=== PATIENT | male | born 1945 | race African-American/Black ===

== ENCOUNTER 2017-06-10 07:36 | Day surgery (SDC) | payer OTHER ==
[~2017-06-10] VITALS: Ht 177.8 cm; Wt 110.0 kg
[~2017-06-10 07:36] MED LIST: AZIT250T3 PO; BENZ100 PO
[2017-06-10] MEDS ORDERED: IOHEXOL 350 MG/ML 100 ML BTL (for Cath Lab) IVCONTRAST ONE (07:37)
[2017-06-10 07:45] VITALS: BP 162/77; PULSE 60; RESP 18; O2SAT 97
[2017-06-10 09:00] LABS: AUTOMATED NEUTROPHIL # 2.8 TH/MM3 (1.8-7.7); BASOPHIL # 0.1 TH/MM3 (0-0.2); BASOPHIL % 1.1 % (0.0-2.0); EOSINOPHIL # 0.2 TH/MM3 (0-0.4); EOSINOPHIL % 3.8 % (0.0-4.0); HEMO FLAGS DIFF FINAL; LYMPH % 42.1 % (9.0-44.0); LYMPHOCYTE # 2.7 TH/MM3 (1.0-4.8); MEAN CELL VOLUME 88.3 FL (80.0-100.0); MEAN CORPUSCULAR HEMOGLOBIN 28.3 PG (27.0-34.0); MEAN CORPUSCULAR HGB CONC 32.1 % (32.0-36.0); PLATELET COUNT 144 TH/MM3 (150-450); RED BLOOD COUNT 4.64 MIL/MM3 (4.50-5.90); RED CELL DISTRIBUTION WIDTH 14.9 % (11.6-17.2); WHITE BLOOD COUNT 6.4 TH/MM3 (4.0-11.0)
[2017-06-10] MEDS: NS 1000P @30 MLS/HR (KVO) IV SCH (09:00)
[2017-06-10 09:10] LABS: APTT (PATIENT) 26.1 SEC (24.3-30.1); PROTHROMBIN TIME - PATIENT 10.5 SEC (9.8-11.6)
[2017-06-10 09:11] LABS: BICARBONATE 24.2 MEQ/L (21.0-32.0); POTASSIUM 4.2 MEQ/L (3.5-5.1)
[2017-06-10] MEDS ORDERED: NOVOINJ2 SQ (09:13)
[2017-06-10] MEDS ORDERED: NITR0.4S SL (09:13)
[2017-06-10] MEDS ORDERED: MULTTAB67 PO (09:13)
[2017-06-10] MEDS ORDERED: FLUC50TA2 PO (09:13)
[2017-06-10] MEDS ORDERED: CLOP75TA PO (09:13)
[2017-06-10] MEDS ORDERED: METO25TA3 PO (09:13)
[2017-06-10] MEDS ORDERED: ATOR20TA15 PO (09:13)
[2017-06-10] MEDS ORDERED: NOVOLOGP2 SQ (09:13)
[2017-06-10] MEDS ORDERED: ASPI81CH CHEW (09:13)
[2017-06-10] MEDS ORDERED: GABA300C5 PO (09:13)
[2017-06-10] MEDS ORDERED: CHOL100025 CHEW (09:13)
[2017-06-10] MEDS ORDERED: OMEP20TA PO (09:13)
[2017-06-10] MEDS ORDERED: LOSA100T2 PO (09:13)
[2017-06-10] MEDS ORDERED: VITA100021 SL (09:13)
[2017-06-10] MEDS ORDERED: HEPARIN SODIUM - IV 10,000 UNITS/10 ML VIAL ONE (10:55)
[2017-06-10] MEDS ORDERED: MIDAZOLAM HCL 2 MG/2 ML VIAL ONE (10:55)
[2017-06-10] MEDS ORDERED: HEPARIN-NS/PF INJ 1,500 ML ONE (10:55)
[2017-06-10] MEDS ORDERED: NITROGLYCERIN INJ 5 ML ONE (10:55)
[2017-06-10] MEDS ORDERED: VERAPAMIL HCL 5 MG/2 ML VIAL ONE (10:55)
[2017-06-10] MEDS ORDERED: ONDANSETRON HCL 4 MG/2 ML VIAL IVP PRN (12:45)
[2017-06-10] MEDS ORDERED: DEXTROSE 50% IN WATER 50 ML VIAL(D50) IV PRN (12:45)
[2017-06-10] MEDS ORDERED: GLUCAGON 1 MG/ML VIAL OTHER PRN (12:45)
[2017-06-10] MEDS ORDERED: MISC INFORMATION XX ONE (12:45)
--- NOTE | 2017-06-10 12:52 | CATHPROC ---
[facility] HIS Report Study Information Study Number Admission Scheduled Start Study Start [id number] Jun 10 2017 7:36AM 06/10/2017 Jun 10 2017 9:38AM [place] [facility] Cardiac Catheterization Admit Source Facility Department Other [facility] - Receiver Bulk System Physician and Clinical Staff Initial Phillip Farley Balance Recesser Mukul FIGUEROA, Pato Recorder Disha Dawkins,RT(R) Recorder Chloé Collier RCIS TECH2 Scrub Augustus Richardson RCIS(BS) Procedures Performed Procedure Location (Site) Vessel Name Coronary Angiograms LCA Left Coronary Coronary Angiograms RCA Right Coronary L Heart Cath PTCA CIRC Prox CIRC Wire insertion Fem Art (right) Femoral Art Wire insertion Radial (right) Radial Art. Equipment Time Track Laborer Description Size Mfg Part Number Used/Scraped WIRE, BALANCE MIDDLEWEIGHT [id number] 11:28 [employer] 190CM Used 190CM *[id number] TRANSDUCER, TRUWAVE [id number] 10:51 GONCALVES JEAN * Used W/STOCKCOCK *[id number] BALLOON, 2.5 6MM FLEXTOME [id number] 12:11 [employer] 2.5 6MM Used CUTTING *[id number] 534-518T *[id number] 534-521T *[id number] 10:51 [employer] INDUSTRIES PACK, CCL CUSTOM * Used *[id number] BALLOON, 2.75 X 12MM NC [id number] 12:13 MEDTRONIC 12MM Used EUPHORA *[id number] 11:26 MEDTRONIC/AVE EBU 3.5 Z2 GUIDE CATHETER FR 6 Used *[id number] 11:48 [employer]TRONIC/AVE EBU 4.0 Z2 GUIDE CATHETER FR 6 Used *[id number] 12:12 [employer] 30 MARCIA INDEFLATOR Used *[id number] BAND, RADIAL COMPRESSION TR [id number] 12:25 [employer] 29CM Used LARGE 29 *[id number] 10:51 [employer] SHEATH, FR5.5 PRELUDE 11CM FR 5 [id number] Used [id number] 10:51 [employer] WIRE, 3MMJ .035 180CM 180CM Used *[id number] 10:51 NAMIC MANIFOLD, 4 PORT * Used *[id number] 10:51 [employer] OMNIPAQUE, 350 MG, 150ML 150ML [id number] Used [id number] 10:51 [employer],WARM AIR CCL * Used *[id number] 110-004 11:32 [employer] CATHETER, ELCA 0.9MM X-80 150CM Used *[id number] Equipment Model, Serial, Lot Number and Expiration Data Description Model Number Serial Number Lot Number Expiration Date BALLOON, 2.75 X 12MM MO [id number] 04-29-2019 EUPHORA CATHETER, ELCA 0.9MM X-80 [id number] 11-22-2018 History: Current Medications Medication Dosage/Unit Route Frequency Last Date/Time Taken ASA PLAVIX Beta Orin Statins (any) LOPRESSOR COZAAR Neurontin NTG SL Insulin Prilosec History: Allergies Allergy Reaction No Known Allergies pravastatin tramadol [place] History: Risk Factors Family History of Hypertension Dyslipidemia Previous [place] Previous Heart Failure Premature CAD Yes Yes No No No Prior Valve Prior PCI Prior PCIDate Prior CABG Surgery No Yes 10/17/2010 No Cerebrovascular Peripheral Artery Chronic Lung On Dialysis Diabetes Diabetes Therapy Disease Disease Disease No No Yes No Yes Insulin History: Symptoms/Diagnosis Selection Items Chest pain SOB History: Stress Tests Stress or Imaging Studies Performed No History: Other Current Smoker Quit Packs a Day Years Used Pack Years No 24 Years Ago 30 30 Labs Hgb (g/dl) Hct (%) RBC (MIL/MM3) WBC (l/cumm) Platelets (thousands) 11.60-17.00 35.00-51.00 4.00-5.90 4.00-11.00 150.00-450.00 13.2 41 4.6 6.4 144 Glucose (mg/dl) BUN (mg/dl) Creatinine (mg/dl) BUN:Creatinine (1:x) 74.00-106.00 7.00-18.00 0.50-1.30 10.00-20.00 135 31 1.4 22.1 Na (meq/l) K (meq/l) 136.00-145.00 3.50-5.10 140 4.2 INR (PTT:PT) 0.90-1.10 1 CPK-MB (ng/ML) 0.50-3.60 Not Drawn Medication Medication Total Dose (Bolus/Oral) Medication Total Dosage/Unit 1% XYLOCAINE 20 mL FENTANYL 50 mcg HEPARIN 8000 units NTG (IC) 400 mcg RADIAL COCKTAIL 5 mL (Bolus) VERSED 0.5 mg Medications (Bolus/Oral) Medication Time Given Dosage/Unit Administered By Reason FENTANYL 06/10/2017 11:10:21 AM 25 mcg Pato Gilman RN 25 mcg FENTANYL given in lab by Pato Gilman RN in Left Hand via Peripheral IV. Ordered by Phillip Musa. 1% XYLOCAINE 06/10/2017 11:10:36 AM 20 mL Phillip Musa 20 mL 1% XYLOCAINE given in lab by Phillip Musa in Right Radial via Subcutaneous. Ordered by Phillip Worley. VERSED 06/10/2017 11:11:11 AM 0.5 mg Pato Gilman RN 0.5 mg VERSED given in lab by Pato Gilman RN in Left Hand via Peripheral IV. Ordered by Ladonna Musa. Ntg 200mcg Verapamil 2.5mg Heparin RADIAL COCKTAIL 06/10/2017 11:11:50 AM 5 mL (Bolus) Phillip Musa 2500U 5 mL (Bolus) RADIAL COCKTAIL given in lab by Phillip Musa in Right Radial via Radial. Using [Thalia ution Name]. Ordered by Phillip Musa. Reason: Ntg 200mcg Verapamil 2.5mg Heparin 4500U. HEPARIN 06/10/2017 11:27:13 AM 8000 units Pato Gilman RN 8000 units HEPARIN given in lab by Pato Gilman RN in Left Hand via Peripheral IV. Ordered by Phillip Fraire. FENTANYL 06/10/2017 12:05:40 PM 25 mcg Pato Gilman RN 25 mcg FENTANYL given in lab by Pato Gilman RN in Left Hand via Peripheral IV. Ordered by Phillip uMsa. NTG (IC) 06/10/2017 12:16:37 PM 200 mcg Phillip Musa 200 mcg NTG (IC) given in lab by Phillip Musa in Right Radial via Intra-coronary. Ordered by Phillip Worley. NTG (IC) 06/10/2017 12:21:03 PM 200 mcg Phillip Musa 200 mcg NTG (IC) given in lab by Phillip Musa in Right Radial via Intra-coronary. Ordered by Phillip Worley. Initial Case Assessment Cardiovascular HR Rhythm NIBP Chest Pain 67 taylor 186/94 0 Edema Present Skin color Skin Mild Normal Warm Circulatory - Right Pulses Dorsalis Pedis Femoral Radial 1 1 3 Scale (0,1,2,3,4,d) Circulatory - Left Pulses Dorsalis Pedis Femoral Radial 1 1 Scale (0,1,2,3,4,d) Neurological State Oriented to time-place- Alert Moves all extremities person Respiration - General Respiration Rate SpO2 (%) (B/min) 19 97 Final Case Assessment Cardiovascular HR Rhythm NIBP Chest Pain 57 taylor 155/87 0 Edema Present Skin color Skin Mild Normal Warm Circulatory - Right Pulses Dorsalis Pedis Femoral Radial 1 1 3 Scale (0,1,2,3,4,d) Circulatory - Left Pulses Dorsalis Pedis Femoral Radial 1 1 Scale (0,1,2,3,4,d) Neurological State Oriented to time-place- Alert Moves all extremities person Respiration - General Respiration Rate SpO2 (%) (B/min) 13 93 Chronological Log Time Study Chronological Log 10:49:07 Patient arrived via Bed. 10:49:08 Patient Name, D.O.B, / Armband Verified By R.N. 10:49:09 Consent signed by the physician and the patient and verified by the Receiver Bulk System staff. 10:49:10 Pre-op and post- op instructions given; patient acknowledges understanding of instructions. 10:49:13 Presedation assessment performed by Receiver Bulk System RN. 10:49:16 Allens test performed on the right radial and ulnar artery. 10:49:22 Patient has been NPO for Less than 6Hrs. 10:49:23 Skin Breakdown- none per pt 10:49:24 Patient Warmer Placed on the Table. 10:49:24 Jonathan Prominences Protected 10:49:28 A # 20 IV was noted in the Hand (left). Grade = 0 10:49:28 History and physical on the chart or being dictated. Assessment: Initial Case, HR=67 BPM, Rhythm=taylor, TGKD=052/94 mmhg, Chest Pain=0, Edema=Mild, Color=Normal, Skin = Warm Right Pulses: Moses Ped=1, Femoral=1, Radial=3 10:49:29 Left Pulses: Moses Ped=1, Femoral=1 Neurological: State=Alert, Ox3, NOVA Respiration: Resp=19 B/min, SpO2=97 % Vitals capture started with the following parameters, Patient=Adult, Interval=5 min, Initial Pr tkpfoz=233 mmHg, 10:54:31 Deflation Rate=5 mmHg, Cuff placed on Right Arm 10:55:58 HR=63 bpm, GJKZ=668/94 mmhg, SpO2=97.0 %, Resp=18 B/min, Pain=0, Abilio=10, Mendez=2 10:56:59 Right radial and Bilateral groins prepped with 2% chlorhexidine, and draped after a 3 min. waiting time. 10:57:55 Reference ECG taken 11:00:21 HR=61 bpm, NXSO=291/88 mmhg, SpO2=97.0 %, Resp=17 B/min, Pain=0, Abilio=10, Mendez=2 11:03:03 Pressure channel 1 zeroed. 11:05:22 HR=63 bpm, ONEA=395/89 mmhg, SpO2=97.0 %, Resp=17 B/min, Pain=0, Abilio=10, Mendez=2 11:06:12 MD arrived. Time Out. Correct patient, correct procedure, correct physician, power injector not loaded with contrast with surgical 11:09:40 team present. Time Out Concurred by MD, individual staff in procedure 11:10:21 HR=64 bpm, XIOI=798/89 mmhg, SpO2=95.0 %, Resp=18 B/min, Pain=0, Abilio=10, Mendez=2 11:10:21 25 mcg FENTANYL given in lab by Pato Gilman RN in Left Hand via Peripheral IV. Ordered by Phillip Musa. 11:10:29 Case Start 20 mL 1% XYLOCAINE given in lab by Phillip Musa in Right Radial via Subcutaneous. Ordered by Lencho 11:10:36 Phillip. 11:11:11 0.5 mg VERSED given in lab by Pato Gilman RN in Left Hand via Peripheral IV. Ordered by Phillip Sin. 11:11:26 Access site was Radial Artery. 11:11:36 A SHEATH, FR5.5 PRELUDE 11CM FR 5 was advanced into the Radial (right) using the Percutaneo us technique. 5 mL (Bolus) RADIAL COCKTAIL given in lab by Phillip Musa in Right Radial via Radial. Usin g [Solution Name]. 11:11:50 Ordered by Phillip Musa. Reason: Ntg 200mcg Verapamil 2.5mg Heparin 4500U. A JR 4.0 INFINITI CATHETER FR 5 was advanced over a wire. OMNIPAQUE, 350 MG, 150ML 150ML was us ed for 11:12:44 injections. Recorded Pressure: LV, HR=66, Condition=Condition 1 11:14:03 (Left Ventricle) LV 167/7/14 Recorded Pressure: LV, Ao, HR=66, Condition=Condition 1 11:14:24 (Left Ventricle) LV 175/7/17, (Aorta) Ao 171/74/112 Recorded Pressure: Ao, HR=67, Condition=Condition 1 11:15:13 (Aorta) Ao 171/78/116 11:15:20 HR=65 bpm, OAVV=802/90 mmhg, SpO2=91.0 %, Resp=27 B/min, Pain=0, Abilio=10, Mendez=2 11:16:02 The RCA was injected and visualized at various angles. OMNIPAQUE, 350 MG, 150ML 150ML used . After removing the current catheter a JL 3.5 INFINITI CATHETER FR 5 was advanced over a WIRE, 3 MMJ .035 180CM 11:16:19 180CM. 11:19:00 The LCA was injected and visualized at various angles. OMNIPAQUE, 350 MG, 150ML 150ML used . 11:20:23 HR=65 bpm, QQBV=091/81 mmhg, SpO2=90.0 %, Resp=19 B/min, Pain=0, Abilio=10, Mendez=2 11:25:20 HR=64 bpm, IPWA=485/80 mmhg, SpO2=89.0 %, Resp=17 B/min, Pain=0, Abilio=10, Mendez=2 After removing the current catheter a EBU 3.5 Z2 GUIDE CATHETER FR 6 was advanced over a WIRE, 3MMJ .035 11:26:37 180CM 180CM. 11:27:13 8000 units HEPARIN given in lab by Pato Gilman RN in Left Hand via Peripheral IV. Ordered by Phillip Musa. 11:30:21 HR=62 bpm, PKQX=973/79 mmhg, SpO2=91.0 %, Resp=16 B/min, Pain=0, Abilio=10, Mendez=2 11:34:17 A WIRE, BALANCE MIDDLEWEIGHT 190CM 190CM was inserted via Radial (right). Wire removed for reshaping and reinserted 11:35:02 11:35:22 HR=62 bpm, ZDIV=729/84 mmhg, SpO2=91 %, Resp=19 B/min 11:40:21 HR=64 bpm, MVPX=079/82 mmhg, SpO2=92 %, Resp=26 B/min 11:45:22 HR=59 bpm, LXBI=934/91 mmhg, SpO2=93 %, Resp=13 B/min 11:46:46 Wire removed Unable to cannulate LCA. After removing the current catheter a EBU 4.0 Z2 GUIDE CATHETER FR 6 w as advanced over 11:47:19 a WIRE, 3MMJ .035 180CM 180CM. 11:50:23 HR=61 bpm, HDOA=682/86 mmhg, SpO2=91.0 %, Resp=16 B/min 11:51:31 Activated Clotting Time Drawn 11:55:22 HR=60 bpm, ZTBH=428/86 mmhg, SpO2=92.0 %, Resp=18 B/min 11:55:43 A WIRE, BALANCE MIDDLEWEIGHT 190CM 190CM was inserted via Fem Art (right). 11:58:23 Laser catheter calibrated. 11:58:58 ACT (Normal Range 90-180) = 360 12:00:23 HR=60 bpm, PFDX=621/79 mmhg, SpO2=93.0 %, Resp=15 B/min A CATHETER, ELCA 0.9MM X-80 150CM was advanced over a wire. OMNIPAQUE, 350 MG, 150ML 150ML was used for 12:00:30 injections. Advanced to Circ 12:03:26 Passes made with the Laser catheter in the circ. 12:05:22 HR=61 bpm, GTHC=497/83 mmhg, SpO2=93.0 %, Resp=22 B/min, Pain=0, Abilio=10, Mendez=2 12:05:40 25 mcg FENTANYL given in lab by Pato Gilman RN in Left Hand via Peripheral IV. Ordered by Phillip Musa. 12:06:03 Laser was removed A BALLOON, 2.5 6MM FLEXTOME CUTTING 2.5 6MM was inserted over WIRE, BALANCE MIDDLEWEIGHT 190CM 190CM 12:08:27 via the Radial (right). 12:10:19 HR=61 bpm, IDGE=157/87 mmhg, SpO2=92.0 %, Resp=16 B/min, Pain=0, Abilio=10, Mendez=2 A BALLOON, 2.5 6MM FLEXTOME CUTTING 2.5 6MM over a WIRE, BALANCE MIDDLEWEIGHT 190CM 190CM in th e CIRC 12:10:58 Prox was inflated using a 30 MARCIA INDEFLATOR at 8 marcia for 30 sec. A BALLOON, 2.5 6MM FLEXTOME CUTTING 2.5 6MM over a WIRE, BALANCE MIDDLEWEIGHT 190CM 190CM in th e CIRC 12:11:48 Prox was inflated using a 30 MARCIA INDEFLATOR at 8 marcia for 30 sec. 12:12:22 Balloon Removed. A BALLOON, 2.75 X 12MM NC EUPHORA 12MM was inserted over WIRE, BALANCE MIDDLEWEIGHT 190CM 190CM via 12:13:34 the Radial (right). A BALLOON, 2.75 X 12MM NC EUPHORA 12MM over a WIRE, BALANCE MIDDLEWEIGHT 190CM 190CM in the CIR C 12:14:24 Prox was inflated using a 30 MARCIA INDEFLATOR at 14 marcia for 40 sec. 12:14:50 Balloon Removed. 12:15:22 HR=63 bpm, INBH=111/76 mmhg, SpO2=91.0 %, Resp=17 B/min, Pain=0, Abilio=10, Mendez=2 12:16:37 200 mcg NTG (IC) given in lab by Phillip Musa in Right Radial via Intra-coronary. Orde red by Phillip Musa. A BALLOON, 2.75 X 12MM NC EUPHORA 12MM was inserted over WIRE, BALANCE MIDDLEWEIGHT 190CM 190CM via 12:18:07 the Radial (right). A BALLOON, 2.75 X 12MM NC EUPHORA 12MM over a WIRE, BALANCE MIDDLEWEIGHT 190CM 190CM in the CIR C 12:19:01 Prox was inflated using a 30 MARCIA INDEFLATOR at 12 marcia for 30 sec. 12:19:28 Balloon Removed. 12:20:23 HR=61 bpm, RLDN=810/75 mmhg, SpO2=88.0 %, Resp=13 B/min, Pain=0, Abilio=10, Mendez=2 12:21:03 200 mcg NTG (IC) given in lab by Phillip Musa in Right Radial via Intra-coronary. Orde red by Phillip Musa. 12:22:22 Wire removed 12:22:43 Catheter was removed 12::59 Case End Radial Compression Device Used. 10 mLs of air placed in BAND, RADIAL COMPRESSION TR LARGE 29 29 CM. Affected 12:24:17 hand 93 % O2 saturation. 12:24:56 No case complications noted. 12::59 Cine recording checked. 12:25:01 Bedside Report will be given. 12:25:24 HR=61 bpm, RTHF=572/87 mmhg, SpO2=88.0 %, Resp=9 B/min, Pain=0, Abilio=10, Mendez=2 12:25:29 Contrast Scanned 12:25:50 A Left Heart Cath was performed. Assessment: Final Case, HR=57 BPM, Rhythm=taylor, NBVW=649/87 mmhg, Chest Pain=0, Edema=Mild, Color=Normal, Skin = Warm Right Pulses: Moses Ped=1, Femoral=1, Radial=3 12:26:40 Left Pulses: Moses Ped=1, Femoral=1 Neurological: State=Alert, Ox3, NOVA Respiration: Resp=13 B/min, SpO2=93 % 12:29:32 Vitals capture stopped. 12:30:00 Patient moved to [facility] End Study - Contrast Media Used In Study Contrast Total Opened (mL) Total Used (mL) Total Wasted (mL) Omnipaque 175 175 0 End Study - Maximum Contrast Load Max Contrast Load (mL) 391.2 End Study - Radiation Exposure Fluoro Time (minutes) 22.1 End Study - Patient Disposition Complications Transferred To Telemetry Bed
[2017-06-10] MEDS: GABAPENTIN 300 MG CAP PO SCH ×2 (13:00→18:00)
[2017-06-10] MEDS: amLODIPine BESYLATE 5 MG TAB PO SCH (15:15)
[2017-06-10] MEDS ORDERED: ASPIRIN 81 MG CHEW TAB CHEW ONE (15:15)
[2017-06-10] MEDS: INSULIN NovoLIN REGULAR SUPPLEMENTAL SCALE SQ SCH ×2 (16:00→20:32)
[2017-06-10 20:00] VITALS: PULSE 62
[2017-06-10 20:13] VITALS: BP 172/86; PULSE 63; RESP 18; TEMP 97.5; O2SAT 99
[2017-06-10] MEDS ORDERED: AMLO5 PO (20:33)
[2017-06-10] MEDS: SODIUM CHLOR 0.9% 1000 ML INJ 1,000 ML IV SCH (20:45)
[2017-06-10 21:00] VITALS: PULSE 62
[2017-06-10] MEDS ORDERED: ATORVASTATIN 20 MG TAB PO SCH (21:00)
[2017-06-10 22:00] VITALS: PULSE 64
--- NOTE | 2017-06-10 22:19 | MA ---
cc: VIANCA VENEGAS DO DATE OF PROCEDURE June 10, 2017 PROCEDURE Left heart catheterization, coronary angiogram, laser atherectomy/cutting balloon/balloon angioplasty of in-stent restenosis of left circumflex, moderate sedation 70 minutes. PREPROCEDURE DIAGNOSIS Unstable angina similar to previous times when he needed intervention. POSTPROCEDURE DIAGNOSIS Coronary artery disease with in-stent restenosis of left circumflex status post laser atherectomy/cutting balloon/balloon angioplasty, residual small vessel disease similar to previous cardiac catheterization. MEDICATIONS 1. Nitro 200 micrograms. 2. Verapamil 2.5 milligrams. 3. Heparin 12,500 units. 4. Fentanyl 50 micrograms. 5. Versed 0.5 milligrams. CONTRAST USED 175 cc. FLUOROSCOPY 22.1 minutes. MODERATE SEDATION 70 minutes. ESTIMATED BLOOD LOSS 10 cc. PROCEDURAL SUMMARY Selvin Crespo is a pleasant 71-year-old male who sees my partner, Dr. Chato Malloy, in the office and there was a concern for unstable angina as he had chest pain similar to his previous times when he needed intervention. Because of this it was felt that we should forego stress testing and have him undergo cardiac catheterization. Risks, benefits and alternatives were explained to him and he consented as such. He was brought to the lab and prepped in the usual sterile fashion. Right radial artery was accessed using a modified Seldinger technique and placement of a 5/6 Cypriot radial sheath. The JR-4 was advanced over a J-wire to the ascending aorta and across the aortic valve for measurement of left ventricular pressure. This was pulled back across the valve showing no significant gradient of aortic stenosis. JR-4 was used for selective angiography of the right coronary artery. This was exchanged out for a JL-3.5 which was used for selective angiography of the left coronary artery. Please see interventional notes below. Postprocedure a radial band was placed over the arteriotomy site for hemostasis. The patient left the pharmaceutical laboratory technician cardiovascularly stable. FINDINGS Left main: Normal size vessel with mild disease in the distal portion. It trifurcates into an LAD circumflex and ramus. LAD: Normal-size vessel with patent stent in the proximal portion with mild in-stent restenosis. Distally the vessel has no significant disease. It has one small diagonal. Ramus: Small to moderate size vessel with no significant disease. Left circumflex: Patent stent in the proximal portion with 70% in-stent restenosis. Distal to this gives off one obtuse marginal which has diffuse 50% disease and does have a 90% lesion in the proximal portion but overall this vessel is 1-1.5 mm. Left circumflex continues as a small vessel around 1-1.5 mm and has an 80% lesion. RCA: Overall small vessel with moderate disease throughout the midportion. At the distal bifurcation there is a 70-80% lesion and overall is a small vessel of 1.5 mm. LVEDP 17. INTERVENTION I reviewed the dictation from his previous cardiac catheterization from [place] and it appears that his small vessel disease in his distal RCA as well as his obtuse marginal and mid left circumflex is similar to previous. His only significant change was the in-stent restenosis of his left circumflex. It is felt at this time that this should be intervened on. An EBU 3.5 catheter was unable to engage the left main so this was exchanged for an EBU 4.0 guide catheter. Heparin was given as an anticoagulant. A BMW wire was advanced down the left circumflex. A laser atherectomy catheter (0.9 mm) was then advanced into the stent and two runs were done at 60/60. Laser catheter was removed and a Flextome cutting balloon (2.5 x 6) was then used on the proximal portion of the lesion within the stent. A noncompliant balloon (2.75 x 12) was then used to further dilate the stent. BMW wire was removed and post angiography shows 20% residual in-stent restenosis of the proximal portion with residual disease of the mid left circumflex and obtuse marginal as before. No perforations or dissections were noted. IMPRESSION 1. Unstable angina. 2. Coronary artery disease as above with in-stent restenosis of proximal left circumflex status post laser atherectomy/cutting balloon/balloon angioplasty. 3. Residual small vessel disease as before in the distal RCA, obtuse marginal and mid left circumflex. 4. Hypertension. RECOMMENDATIONS 1. Mr. Crespo is currently on aspirin and Plavix and will continue these as such. 2. He will be watched overnight and if stable in the morning discharge. 3. He does have CKD III and will be placed on hydration overnight with a check of his creatinine in the morning. 4. As he is significantly hypertensive I have added Norvasc 5 milligrams daily for not only his antihypertensive but also its antianginal as he does have small vessel residual disease. 5. He will follow up with Dr. Malloy in 2-4 weeks. Thank you for allowing me to see Selvin Crespo. If there are any questions please do not hesitate to call. Vianca Venegas DO VGP/EO /9:14 PM /9:57 PM
[2017-06-10 23:00] VITALS: BP 157/76; PULSE 52; PULSE 62; RESP 18; TEMP 97.7; O2SAT 97
[2017-06-11] VITALS (13 sets, daily range): BP systolic 132–153; BP diastolic 69–94; PULSE 54–73; RESP 18; TEMP 97.6–98.4; O2SAT 97–98
[2017-06-11] MEDS: INSULIN NovoLIN REGULAR SUPPLEMENTAL SCALE SQ SCH ×2 (06:25→11:00)
--- NOTE | 2017-06-11 08:32 | PD.CARD.PN ---
Subjective Subjective Remarks no overnight events no CV complaints Objective Medications Current Medications Medications (Trade) Dose Ordered Sig/Tonja Route Start Time Stop Time Status Last Admin Sodium Chloride 1,000 ml @ 30 mls/hr Q24H IV 06/10/17 09:00 06/10/17 09:00 (Lipitor) 20 mg HS PO 06/10/17 21:00 06/10/17 20:32 (Plavix) 75 mg DAILY PO 06/11/17 09:00 (Neurontin) 300 mg TID PO 06/10/17 13:00 06/10/17 18:00 (Lopressor) 25 mg DAILY PO 06/11/17 09:00 (Theragran) 1 tab DAILY PO 06/11/17 09:00 (Protonix) 20 mg DAILY PO 06/11/17 09:00 (D50w (Vial) Inj) 50 ml UNSCH PRN IV 06/10/17 12:45 (Glucagon Inj) 1 mg UNSCH PRN OTHER 06/10/17 12:45 (NovoLIN R SUPPLEMENTAL SCALE) 1 ACHS SLIDING SCALE SQ 06/10/17 16:00 06/11/17 06:25 (Zofran Inj) 4 mg Q6H PRN IVP 06/10/17 12:45 (Norvasc) 5 mg DAILY PO 06/10/17 15:15 06/10/17 15:15 Sodium Chloride 1,000 ml @ 84 mls/hr [id number] IV 06/10/17 20:45 Vital Signs / I&O Vital Signs Date Time Temp Pulse Resp B/P (MAP) Pulse Ox O2 Delivery O2 Flow Rate FiO2 06/11/17 06:00 60 06/11/17 05:00 73 06/11/17 04:00 64 06/11/17 03:00 58 06/11/17 03:00 98.4 61 18 143/69 (93) 97 06/11/17 02:00 65 06/11/17 01:00 58 06/11/17 00:00 62 06/10/17 23:00 52 06/10/17 23:00 97.7 62 18 157/76 (103) 97 06/10/17 22:00 64 06/10/17 21:00 62 06/10/17 20:13 97.5 63 18 172/86 (114) 99 06/10/17 20:00 62 06/10/17 15:15 98 Room Air I/O 06/10/17 06/10/17 06/10/17 06/11/17 06/11/17 06/11/17 07:00 15:00 23:00 07:00 15:00 23:00 Intake Total 240 ml Output Total 400 ml Balance -160 ml Intake Oral 240 ml Output Urine Total 400 ml Physical Exam GENERAL: Well-nourished, well-developed patient. SKIN: Warm and dry. HEAD: Normocephalic. EYES: No scleral icterus. No injection or drainage. NECK: Supple, trachea midline. No JVD or lymphadenopathy. CARDIOVASCULAR: Regular rate and rhythm without murmurs, gallops, or rubs. RESPIRATORY: Breath sounds equal bilaterally. No accessory muscle use. GASTROINTESTINAL: Abdomen soft, non-tender, nondistended. EXTREMITIES: No cyanosis, or edema. NEUROLOGICAL: Awake, alert, and oriented x 3. Non-focal. Assessment and Plan Problem List: (1) CAD (coronary artery disease) ICD Codes: I25.10 - Atherosclerotic heart disease of [place] coronary artery without angina pectoris Plan: s/p POBA and Lazer atherectomy to LCx ISR. No CV complaints. Ambulating without difficulty. No overnight events. Stable to D/C home today. Labs pending Recommendations: - D/C home today - Cont DAPT Problem Qualifiers (1) CAD (coronary artery disease): Ethan Nur MD Jun 11, 2017 08:32
[2017-06-11] MEDS: SODIUM CHLOR 0.9% 1000 ML INJ 1,000 ML IV SCH (08:40)
[2017-06-11] MEDS: NS 1000P @30 MLS/HR (KVO) IV SCH (09:00)
[2017-06-11] MEDS ORDERED: CLOPIDOGREL 75 MG TAB PO SCH (09:00)
[2017-06-11] MEDS ORDERED: METOPROLOL TARTRATE 25 MG TAB PO SCH (09:00)
[2017-06-11] MEDS ORDERED: MULTIVITAMIN TAB PO SCH (09:00)
[2017-06-11] MEDS ORDERED: PANTOPRAZOLE SOD 20 MG DELAYED RELEASE TAB PO SCH (09:00)
[2017-06-11 09:24] LABS: BASOPHIL # 0.1 TH/MM3 (0-0.2); BASOPHIL % 0.9 % (0.0-2.0); EOSINOPHIL # 0.2 TH/MM3 (0-0.4); EOSINOPHIL % 3.4 % (0.0-4.0); HEMO FLAGS DIFF FINAL; LYMPH % 37.7 % (9.0-44.0); LYMPHOCYTE # 2.2 TH/MM3 (1.0-4.8); MEAN CELL VOLUME 86.9 FL (80.0-100.0); MEAN CORPUSCULAR HEMOGLOBIN 29.1 PG (27.0-34.0); MEAN CORPUSCULAR HGB CONC 33.5 % (32.0-36.0); MONO % 7.7 % (0.0-8.0); NEUT % 50.3 % (16.0-70.0); PLATELET COUNT 131 TH/MM3 (150-450); RED BLOOD COUNT 4.49 MIL/MM3 (4.50-5.90); RED CELL DISTRIBUTION WIDTH 14.8 % (11.6-17.2); WHITE BLOOD COUNT 5.9 TH/MM3 (4.0-11.0)
[2017-06-11] MEDS: amLODIPine BESYLATE 5 MG TAB PO SCH (09:40)
[2017-06-11] MEDS: GABAPENTIN 300 MG CAP PO SCH (09:40)
[2017-06-11 09:48] LABS: BICARBONATE 23.4 MEQ/L (21.0-32.0); POTASSIUM 4.5 MEQ/L (3.5-5.1)
--- NOTE | 2017-06-11 18:54 | EKG ---
Date Performed: 06/10/2017 Time Performed: 08:30:40 PTAGE: 71 years EKG: Sinus bradycardia with PAC(s). Normal ECG except for rate NO PREVIOUS TRACING DOCTOR: Pancho Paulson Interpretating Date/Time 06/11/2017 18:53:12
== END 2017-06-11 12:37 | disposition home or self-care (01) ==
LOC: HDOC 07:36 → HDIC 07:37 → HCIS 19:45 → HDOC 06-11 12:37
PROVIDERS: ATTEND Nuclear Medicine Nuclear Cardiology
DX: T82.857A Stenosis of other cardiac prosthetic devices, implants and grafts, initial encounter (principal); I25.110 Atherosclerotic heart disease of native coronary artery with unstable angina pectoris; I12.9 Hypertensive chronic kidney disease with stage 1 through stage 4 chronic kidney disease, or unspecified chronic kidney disease; N18.3 Chronic kidney disease, stage 3 (moderate); E11.22 Type 2 diabetes mellitus with diabetic chronic kidney disease; G47.30 Sleep apnea, unspecified; E66.9 Obesity, unspecified; G89.4 Chronic pain syndrome; I73.9 Peripheral vascular disease, unspecified; E78.5 Hyperlipidemia, unspecified; E11.42 Type 2 diabetes mellitus with diabetic polyneuropathy; K21.9 Gastro-esophageal reflux disease without esophagitis; Z01.818 Encounter for other preprocedural examination
CPT/HCPCS: 80048; 82948; 85002; 85025; 85610; 85730; 92924; 93005; 93458; C1725; C1769; C1885; C1887; C1893; J1644; J2250; J3010; J7030; Q9967